=== PATIENT | female | born 1985 | race Caucasian/White ===

== ENCOUNTER 2023-12-04 06:27 | Day surgery (SDC) | payer OTHER, SELFPAY ==
[2023-12-04] VITALS (9 sets, daily range): BP systolic 87–119; BP diastolic 54–77; BMI 29.6
[2023-12-04] MEDS: VIBRAMYCIN 260 MG IV (09:29)
[2023-12-04] MEDS: NORMOSOL-R/PLASMALYTE-A 1000 IV (09:29)
== END 2023-12-04 12:22 | disposition home or self-care (01) ==
LOC: SDS 06:27
PROVIDERS: ATTENDING PHYSICIAN Obstetrics & Gynecology
DX: O02.1 Missed abortion (principal); O09.521 Supervision of elderly multigravida, first trimester; Z3A.08 8 weeks gestation of pregnancy
CPT/HCPCS: 59820; 88305

== ENCOUNTER → 2024-02-27 09:46 | Outpatient (REF) | payer OTHER, SELFPAY | LOC: WDC 09:46 | PROVIDERS: ATTENDING PHYSICIAN Obstetrics & Gynecology; FAMILY PHYSICIAN Nurse Practitioner Gerontology | DX: N64.4 Mastodynia (principal) | CPT/HCPCS: 76642; 77062; 77066 ==

== ENCOUNTER → 2024-05-04 10:54 | Outpatient (REF) | payer BC, SELFPAY | LOC: PNTC 10:54 | PROVIDERS: ATTENDING PHYSICIAN Obstetrics & Gynecology | DX: O09.529 Supervision of elderly multigravida, unspecified trimester (principal) | CPT/HCPCS: 76801; 76813 ==

== ENCOUNTER → 2024-06-01 10:00 | Outpatient (REF) | payer BC, SELFPAY | LOC: PNTC 10:00 | PROVIDERS: ATTENDING PHYSICIAN Obstetrics & Gynecology | DX: O09.529 Supervision of elderly multigravida, unspecified trimester (principal); O99.210 Obesity complicating pregnancy, unspecified trimester; O34.219 Maternal care for unspecified type scar from previous cesarean delivery | CPT/HCPCS: 76805; 93976 ==